=== PATIENT | male | born 1945 | race American Indian/Alaskan Native ===

== ENCOUNTER 2019-08-29 22:40 | Emergency (ER) | payer MEDICARE, OTHER ==
[~2019-08-29 22:40] MED LIST: ADRENALIN ONE
--- NOTE | 2019-08-29 22:52 | Emergency Department Report ---
ED CPR HPI - General Stated Complaint: CARDIAC ARREST Time Seen by Provider: 08/29/19 22:46 Source: EMS - History of Present Illness Initial Comments: 74-year-old male, history of hypertension and COPD, presents to ED in cardiac a rrest. EMS states patient was found down at home, laying on the floor. Family members had to break into home to get in. They last spoke to pt at approx 8pm. A family member got into the home and then transferred him to the bed. When EMS arrived patient was pulseless and apneic, with a rhythm of asystole. ACLS was initiated, patient is intubated. Patient was given epi 2. Patient with EMS 2 0 minutes. Upon EMS arrival, patientcontinues to be in arrest. MD Complaint: found unresponsive -: unknown Place: home Bystander CPR Performed: No Shock Advised: No Initial Findings in the Field: unresponsive, no respirations, no pulse ROSC in the Field: No Treatments Prior to Arrival: intubation, chest compressions, epinephrine mgs # (2) - Related Data Home Medications Medication Instructions Recorded Confirmed Last Taken ALBUTEROL Inhaler (OR & NICU) 2 puff IH QID PRN 08/01/16 08/07/16 2 Days Ago [ProAir HFA Inhaler] ~08/05/16 Albuterol Sulfate [Albuterol 0.63% 0.63 mg IH TID PRN 08/01/16 08/01/16 08/07/16 08:45 NEBS] Aspirin EC [Halfprin EC] 81 mg PO QDAY 08/01/16 08/01/16 08/01/16 Azelastine/Fluticasone [Dymista 1 spray NS BID 08/01/16 08/01/16 08/07/16 08:45 Nasal Plover] Finasteride 5 mg PO QDAY 08/01/16 08/07/16 08/05/16 Fluticasone/Salmeterol [Advair 1 puff IH BID 08/01/16 08/01/16 08/07/16 08:45 Diskus 250-50 mcg] Losartan [Cozaar] 100 mg PO QDAY 08/01/16 08/01/16 08/07/16 08:45 Montelukast [Singulair] 10 mg PO QPM 08/01/16 08/07/16 2 Days Ago ~08/05/16 Nitrofurantoin Macrocrystal 100 mg PO QDAY 08/01/16 08/07/16 3 Days Ago [Nitrofurantoin] ~08/04/16 Omeprazole Magnesium [PriLOSEC Otc] 20 mg PO QDAY 08/01/16 08/07/16 3 Days Ago ~08/04/16 Prednisone [predniSONE 10 mg 10 mg PO .TAPER 08/01/16 08/01/16 08/07/16 08:45 (6-Day Pack, 21 Tabs)] Tiotropium [Spiriva] 18 mcg IH QDAY 08/01/16 08/01/16 08/07/16 08:45 Travoprost (Benzalkonium) 1 drop OP QHS 08/01/16 08/07/16 08/06/16 [Travoprost 0.004% Eye Drop] amLODIPine [Norvasc] 5 mg PO DAILY 08/01/16 08/01/16 08/07/16 08:45 methOCARBAMOL [Robaxin TAB] 500 mg PO QDAY PRN 08/01/16 08/07/16 2 Months Ago ~06/06/16 Previous Rx's Medication Instructions Recorded Last Taken Type Promethazine [Phenergan TAB] 25 mg PO Q6HR PRN #10 tab 08/07/16 Unknown Rx oxyCODONE /ACETAMINOPHEN [Percocet 1 - 2 tab PO Q4HR PRN #30 tablet 08/07/16 Unknown Rx 5/325] Allergies Allergy/AdvReac Type Severity Reaction Status Date / Time No Known Allergies Allergy Verified 08/07/16 12:11 ED Review of Systems ROS: Stated complaint: CARDIAC ARREST Other details as noted in HPI Comment: Unobtainable due to pts medical conditions ED Past Medical Hx - Past Medical History Hx Hypertension: Yes (FOR 10+ YRS, DR. JENNIFER ROD- PCP, DR. Tom GARY - [employer]) Hx Heart Attack/AMI: No Hx GERD: Yes Hx Renal Disease: No Hx COPD: Yes (02 2L N/C CONTINUOUS) Hx HIV: No - Social History Smoking Status: Current Every Day Smoker - Medications Home Medications: Home Medications Medication Instructions Recorded Confirmed Last Taken Type ALBUTEROL Inhaler (OR & NICU) 2 puff IH QID PRN 08/01/16 08/07/16 2 Days Ago History [ProAir HFA Inhaler] ~08/05/16 Albuterol Sulfate [Albuterol 0.63% 0.63 mg IH TID PRN 08/01/16 08/01/16 08/07/16 08:45 History NEBS] Aspirin EC [Halfprin EC] 81 mg PO QDAY 08/01/16 08/01/16 08/01/16 History Azelastine/Fluticasone [Dymista 1 spray NS BID 08/01/16 08/01/16 08/07/16 08:45 History Nasal Plover] Finasteride 5 mg PO QDAY 08/01/16 08/07/16 08/05/16 History Fluticasone/Salmeterol [Advair 1 puff IH BID 08/01/16 08/01/16 08/07/16 08:45 History Diskus 250-50 mcg] Losartan [Cozaar] 100 mg PO QDAY 08/01/16 08/01/16 08/07/16 08:45 History Montelukast [Singulair] 10 mg PO QPM 08/01/16 08/07/16 2 Days Ago History ~08/05/16 Nitrofurantoin Macrocrystal 100 mg PO QDAY 08/01/16 08/07/16 3 Days Ago History [Nitrofurantoin] ~08/04/16 Omeprazole Magnesium [PriLOSEC Otc] 20 mg PO QDAY 08/01/16 08/07/16 3 Days Ago History ~08/04/16 Prednisone [predniSONE 10 mg 10 mg PO .TAPER 08/01/16 08/01/16 08/07/16 08:45 History (6-Day Pack, 21 Tabs)] Tiotropium [Spiriva] 18 mcg IH QDAY 08/01/16 08/01/16 08/07/16 08:45 History Travoprost (Benzalkonium) 1 drop OP QHS 08/01/16 08/07/16 08/06/16 History [Travoprost 0.004% Eye Drop] amLODIPine [Norvasc] 5 mg PO DAILY 08/01/16 08/01/16 08/07/16 08:45 History methOCARBAMOL [Robaxin TAB] 500 mg PO QDAY PRN 08/01/16 08/07/16 2 Months Ago History ~06/06/16 Promethazine [Phenergan TAB] 25 mg PO Q6HR PRN #10 tab 08/07/16 Unknown Rx oxyCODONE /ACETAMINOPHEN [Percocet 1 - 2 tab PO Q4HR PRN #30 tablet 08/07/16 Unknown Rx 5/325] ED Physical Exam - General General appearance: other (unresponsive) - Head Head exam: Present: atraumatic, normocephalic - Eye Eye exam: Present: other (pupils are fixed) - ENT ENT exam: Present: other (ET tube in place) - Neck Neck exam: Present: normal inspection - Respiratory Respiratory exam: Present: decreased breath sounds, other (no spontaneous breat hs) - Cardiovascular Cardiovascular Exam: Present: other (no palpable pulse) - GI/Abdominal GI/Abdominal exam: Present: soft. Absent: distended - Extremities Exam Extremities exam: Present: normal inspection - Neurological Exam Neurological exam: Present: other (GCS=3) - Skin Skin exam: Present: warm, dry, intact ED Medical Decision Making - Medical Decision Making 74-year-old male presents to ED in cardiac arrest. Patient given epinephrine 2 prior to ED arrival. Patient arrives in asystole. ACLS was continued here in the ED. Please see nurse's notes for details. Unfortunately, no return of spontaneous circulation. Time of called at 22:45. - Differential Diagnosis arrythmia, ACS, CVA, PE Critical care attestation.: If time is entered above; I have spent that time in minutes in the direct care of this critically ill patient, excluding procedure time. ED Disposition Clinical Impression: Cardiac arrest Disposition: [id number] Is pt being admited?: No Condition: Stable Forms: Accompanied Note Time of Disposition: 22:53
== END 2019-08-30 03:30 ==
LOC: ED 22:40
DX: I46.9 Cardiac arrest, cause unspecified (principal); I10 Essential (primary) hypertension; K21.9 Gastro-esophageal reflux disease without esophagitis; F17.200 Nicotine dependence, unspecified, uncomplicated
CPT/HCPCS: 92950; 99285; J0171